=== PATIENT | female | born 1980 | race Caucasian/White ===

== ENCOUNTER 2017-03-13 20:47 | Inpatient (IN) | payer OTHER ==
[~2017-03-13] VITALS: Ht 170.2 cm; Wt 70.9 kg
[2017-03-13 20:50] VITALS: BP 154/107; PULSE 98; RESP 16; O2SAT 99
[2017-03-13] MEDS ORDERED: 0.9% Sodium Chloride 1,000 ML IV ONE (21:16)
--- NOTE | 2017-03-13 21:16 | ED.REPORT ---
HPI-General Illness Date of Service March 13, 2017 ED Provider: Dr. Brigido Mcdonald MD A 36 year old female presents to the ED with opiate withdrawal that began earlier this afternoon. Patient is currently interested in a referral to [facility]. She was previously seen in the ED in 06/2016 with similar symptoms and was referred to a Suboxone clinic but did not follow-up with the treatment. Associated symptoms include nausea, vomiting, diaphoreses and diarrhea. Patient has been using IV heroin for the past year and last used 24 hours ago. Nursing Notes Stated Complaint: OPIATE WITHDRAWL Chief Complaint: Substance Abuse Nursing Notes Reviewed: Yes Allergies: Coded Allergies: No Known Allergies (Unverified , 03/13/17) Scheduled Nicotine 21 mg/24 hr Patch (Nicotine 21 mg/24 hr Patch) 1 Each Patch.dysq 1 PATCH TRANSDERM DAILY Scheduled PRN Ibuprofen (Ibuprofen) 200 Mg Capsule 200-400 MG PO QID PRN PRN For Pain General Time Seen by MD: 21:15 Chief Complaint Other (Substance Abuse) Hx Obtained From: Patient Arrived By: Walk-in Sudden in Onset?: No Onset Occurred: 5 - 8 hours ago Symptom Duration: Since onset Associated with: Reports: Diaphoresis, Nausea, Vomiting Pertinent Negative: Pt denies other symptoms Recent Healthcare: No recent doctor visit, No recent hospitalization Past Medical History Past Medical History Hx of heroin abuse Past Surgical History Abscess I&D Social History IM heroin Other Social History: Poor social support, Local resident Ambulatory Status Independent Review of Systems Full Review of Systems GI: Reports: Diarrhea, Nausea, Vomiting Skin: Reports Diaphoresis Complete sys rev & neg: except as marked. Physical Exam Vital Signs Vital Signs Date Time Temp Pulse Resp B/P Pulse Ox O2 Delivery O2 Flow Rate FiO2 03/13/17 23:51 85 20 154/96 100 Room Air 03/13/17 20:50 36.4 98 16 154/107 99 Room Air Initial VS: Reviewed Neck: Supple, Non-tender, Full range of motion Extremities: Vascular intact, Neuro intact, No swelling, No tenderness Skin: Warm, Dry, No cyanosis Neurologic: Alert, Oriented, Nonfocal General/Constitutional: Awake, Alert, No acute distress Head / Eyes: Atraumatic, Normocephalic, PERRL Respiratory / Chest: Atraumatic, Breath sounds NL, Breath sounds = bilat, No respiratory distress Cardiovascular: Heart rate NL, Regular rhythm, Heart sounds NL, No murmurs Abdomen: Atraumatic, Soft, BS normoactive Interpretation & Diagnostics Lab Results Interpretation Result Diagram: 03/13/17 2210 03/13/17 2210 Test 03/13/17 22:10 03/13/17 23:58 White Blood Count 10.2th/mm3 (3.8-10.1) Red Blood Count 5.58mil/mm3 (3.90-5.20) Hemoglobin 15.3g/dL (12.0-15.6) Hematocrit 46.5% (35.0-46.0) Mean Corpuscular Volume 83.3fL (81-100) Mean Corpuscular Hemoglobin 27.4pg (27.0-35.0) Mean Corpuscular Hemoglobin Concent 32.9% (32.0-37.0) Red Cell Distribution Width 15.6% (12.3-15.4) Platelet Count 389bil/L (150-400) Neutrophils (%) (Auto) 43.7% (40-74) Lymphocytes (%) (Auto) 41.3% (14-46) Monocytes (%) (Auto) 8.1% (4-12) Eosinophils (%) (Auto) 5.1% (0-5) Basophils (%) (Auto) 1.5% (0-3) Band Neutrophils % 0% (1-5) Prothrombin Time 12.1sec (8.1-12.5) Prothromb Time International Ratio 1.13ratio Sodium Level 139mEq/L (134-144) Potassium Level 4.3mEq/L (3.5-5.2) Chloride Level 100mEq/L (97-108) Carbon Dioxide Level 23mmol/L (18-29) Blood Urea Nitrogen 17mg/dL (6-20) Creatinine 0.44mg/dL (0.57-1.00) Estimat Glomerular Filtration Rate 229mL/min (>59) Glucose Level 126mg/dL (60-99) Calcium Level 9.1mg/dL (8.5-10.1) Total Bilirubin 3.2mg/dL (0.0-1.2) Aspartate Amino Transf (AST/SGOT) 1304U/L (0-50) Alanine Aminotransferase (ALT/SGPT) 1691U/L (0-32) Alkaline Phosphatase 216U/L (25-150) Total Protein 7.5g/dL (6.4-8.4) Albumin 3.9g/dL (3.4-5.0) Lipase 13U/L (13-60) Urine Color Dark yellow (YELLOW) Urine Appearance Cloudy (CLEAR,HAZY) Urine pH 5.5 (5.0-8.0) Urine Specific Cooper 1.023 (1.003-1.035) Urine Protein Tracemg/dL (NEG,TRACE) Urine Glucose (UA) Negativemg/dL (NEGATIVE) Urine Ketones Negativemg/dL (NEGATIVE) Urine Occult Blood Large (NEGATIVE) Urine Nitrite Positive (NEGATIVE) Urine Bilirubin Moderate (NEGATIVE) Urine Ictotest Positive (Negative) Urine Urobilinogen 4.0mg/dL (NORMAL) Urine Leukocyte Esterase Trace (NEGATIVE) Urine RBC 11-50/hpf (0-2) Urine WBC 6-10/hpf (0-5) Urine Epithelial Cells Moderate/hpf (NONE-MOD) Urine Crystals None seen (NONE SEEN) Urine Bacteria Many/hpf (NONE-FEW) Urine Hyaline Casts None/lpf (NONE) Urine Granular Casts None seen (NONE SEEN) Urine Waxy Casts None seen (NONE SEEN) Urine Red Blood Cell Casts None seen (NONE SEEN) Urine White Blood Cell Casts None seen (NONE SEEN) Urine Mucus Present (None Seen) Urine Trichomonas None seen (NONE SEEN) Urine Yeast None (NONE SEEN) Urinalysis Comment None Urine Culture Reflexed Indicated US Focused Biliary CONCLUSION: Normal gallbladder, contracted. Mild hepatomegaly. No gallstones or acute abnormalities. Radiologist: Ann Bolden MD. Re-Eval/Medical Decision Time of Eval: 21:31 Patient Status: Condition improved Re-Evaluation/Progress Note: She is informed of her lab results. All of the patient's questions are addressed. She understands and agrees with the treatment plan. Time of Eval: 23:17 Re-Evaluation/Progress Note: Pt rechecked. Pt denies ETOH abuse or hx of HepC. She states that she had bilious vomit last night and abdominal bloating. Discussed need for abdomenal US and possible need for admit. Pt understands and agrees with plan. Consultation #1: Referral / Consult Name: Efe Lyn MD Call Returned at: 23:25 [employer]inter Press Operator: Will see patient Note: Discussed pt condition and plan for acute hepatitis work-up with admit. Dr. Lyn agrees with the plan and will consult on pt tomorrow. Consultation #2: Referral / Consult Name: Sariah Georges DO Consulted With: Hospitalist Call Returned at: 23:48 [employer] Operator: Will see patient, Agrees with eval, Accepts admit Note: Dsicussed pt condition. Accepts admit. Counseled Regarding: Diagnosis, Lab results, Need for follow-up, When/why to return to ED Discharge & Departure Primary Impression: Acute hepatitis Additional Impressions: Opioid withdrawal UTI (urinary tract infection) Urinary tract infection type: acute cystitis Hematuria presence: without hematuria Qualified Code: N30.00 - Acute cystitis without hematuria Disposition: ADMITTED TO HOSPITAL Discharge Condition All VS Reviewed: Yes Condition: Improved Additional Instructions: Thank you for trusting us with your care this evening. I highly recommend that you abstain from heroin until you are able to follow up with [facility] (see referral). Please return to the emergency department for any new or worsening symptoms. Referrals: [facility] (PCP) [facility] Attestation Portions of this note were transcribed by Roya Kitchen and Maisha Carvalho. I, Dr. Mcdonald personally performed the history, physical exam and medical decision- making; I reviewed and confirmed the accuracy of the information in the transcribed note. Signed by: Elaina France, 03/13/17 2200. Signed by: Elaina Vergara, 03/14/17 and Brigido Godinez DO March 13, 2017 21:16 ROYA KITCHEN March 13, 2017 21:24 MAISHA CARVALHO March 13, 2017 23:19
[2017-03-13] MEDS ORDERED: Ondansetron 2 mg/mL 2 mL Inj IVPUSH PRN ×2 (21:20→23:50)
[2017-03-13] MEDS ORDERED: cloNIDine 0.1 mg Tablet PO ONE (21:35)
[2017-03-13] MEDS ORDERED: Promethazine Inj 12.5 MG in 0.9% Sodium Chloride-Pha MIX 100 ML IV ONE (21:35)
[2017-03-13 22:31] LABS: MONOCYTES % (AUTO) 8.1 % (4-12); Mean Corpuscular Hemoglobin 27.4 pg (27.0-35.0); Mean Corpuscular Volume 83.3 fL (81-100); NEUTROPHILS % (AUTO) 43.7 % (40-74); Platelet Count 389 bil/L (150-400)
[2017-03-13 22:32] LABS: BASOPHILS % (AUTO) 1.5 % (0-3); EOSINOPHILS % (AUTO) 5.1 % (0-5)
[2017-03-13 23:33] LABS: INR 1.13 ratio
[2017-03-13] MEDS ORDERED: Alum-Mag Hydrox-Simeth 30 mL Suspension PO PRN (23:50)
[2017-03-13] MEDS ORDERED: Polyethylene Glycol (PEG) 17 Gm Powder PO PRN (23:50)
[2017-03-13 23:51] VITALS: BP 154/96; PULSE 85; RESP 20; O2SAT 100
--- NOTE | 2017-03-13 23:58 | PCM.HPMED ---
Subjective Date of Service March 13, 2017 Primary Provider: Admitting Physician: Primary Care Physician: Maya Attending Physician: Admit Status: From the Emergency Department Chief Complaint: diarrhea, nausea, vomiting History of Present Illness: 36yoF with history of heroin dependence admitted with one week history of acute epigastric pain and opioid withdrawal. Patient is in mild distress during interview and a somewhat difficult historian. Over the past week she states that she has been having increasing non-radiating abdominal pain (now rated 9/10) in the epigastric area. This is in the setting of current opioid withdrawal however this pain is different in character than previous withdrawal. She also endorses nausea, vomiting, chills which she feels are a/w withdrawal and denies hematemesis, changes in urination , or recent changes in BM. Last use of heroin was 24 hours ago. Ms. Baker wishes to stop using heroin and is interested in using suboxone at this time. Review of Systems: Complete review of systems obtained. Positive as per HPI otherwise negative. Allergies Coded Allergies: No Known Allergies (Unverified , 03/13/17) Home Medications None PMH IVDU, heroin dependence Surgical History I&D abscess Appendectomy Back surgery Family History No history of opioid dependence Social History Occupation: unemployed Hx Substance Use: Yes (Heroin) Hx Tobacco Use: Yes Smoking Status: Current Every Day Smoker Living Arrangement: with Family (lives with mother) Exam Vital Signs Vital Sign - Last Date Time Temp Pulse Resp B/P Pulse Ox O2 Delivery O2 Flow Rate FiO2 03/13/17 23:51 85 20 154/96 100 Room Air 03/13/17 20:50 36.4 Exam General: Alert and oriented x3, mild distress Eyes: PERRLA, Scleral icteric Mouth: Mouth Normal, Mucous Membranes dry/[place] Neck: Supple, no Thyromegaly, trachea central. Pulmonary: clear to auscultation bilaterally, no rhonchi, wheezes or rales, good inspiratory effort Cardiovascular: Normal S1, Normal S2, No Murmurs/Rubs/Gallops, Regular Rate/ Rhythm, (No JVD, no peripheral edema) Pulses: Radial (present and equal), Dorsalis Pedi (present and equal) GI: Soft, tender in the mid epigastric and RUQ, mildly distended, Normoactive bowel tones. Musculoskeletal: no joint edema or erythema Extremities: No edema, no cyanosis, no clubbing. Skin: No rashes. Warm and dry, no erythematous areas, jaundice Neurological: CN grossly intact Lymphatic: Lymph nodes Cervical and Axillary not palpable. Psych: normal affect Lab and Diagnostics Result Diagram: 03/13/17220903/13/172209 Additional Diagnostics: ABD US as per ED CONCLUSION: Normal gallbladder, contracted. Mild hepatomegaly. No gallstones or acute abnormalities. Radiologist: Ann Bolden MD. Assessment & Plan 36yoF with history of heroin dependence admitted with one week history of acute epigastric pain and opioid withdrawal. Abdominal pain, acute, POA -likely multifactorial opiate withdrawal, acute hepatitis, -initial US read complete, official pending -blood work reviewed and concerning for biliary obstruction -consult GI in am Elevated transaminases, acute, POA -history of IVDU with patient reported hepatitis screen negative. -repeat hepatitis panel pending -US official read pending, blood work concerning for biliary obstruction -acetaminophen level mildly elevated on presentation, NAC protocol started as per poison control recs, patient not suicidal and recently took acetaminophen for abdominal pain Urinary tract infection, acute, POA -patient without dysuria, possible frequency -given piperacillin-tazobactam in ED -will continue levofloxacin daily Elevated glucose, acute, POA -no history of diabetes -hgbA1c pending Acute opioid withdrawal, acute POA -will start suboxone -lorazepam, clonidine PRN Opioid dependence, chronic, POA -patient wishes to stop using at this time -2mg subutex ordered, AM to consult with ED providers of subutex for further management inpatient and following discharge -SW consult Tobacco dependence, chronic, POA -discussed the importance of tobacco cessation -patient would like to stop smoking -nicotine patch ordered Pain Evaluation: Adequate Pain Control GI Prophylaxis: Not indicated VTE Prophylaxis: Sub-Q Heparin (Unfractionated) Resuscitation Status: CPR: Attempt Resuscitation Sariha Georges DO March 13, 2017 23:58
[2017-03-14] MEDS ORDERED: NICO1PAT16 TRANSDERM
[2017-03-14] MEDS ORDERED: IBUP200C PO
[2017-03-14 00:04] LABS: APPEARANCE,URINE CLOUDY (CLEAR,HAZY); COLOR,URINE DARK YELLOW (YELLOW); PH,URINE 5.5 (5.0-8.0)
[2017-03-14 00:05] LABS: ICTOTEST,URINE POSITIVE (Negative); OCCULT BLOOD,URINE LARGE (NEGATIVE)
[2017-03-14] MEDS ORDERED: Piperacillin-Tazo 3.375 Gm Inj 3.375 GM in Dextrose 5% Minibag Plus 50 ML IV ONE (00:30)
[2017-03-14] MEDS: 0.9% Sodium Chloride 1,000 ML IV SCH ×2 (00:30→13:10)
[2017-03-14 01:02] VITALS: BP 154/96; PULSE 85; RESP 20; O2SAT 100
[2017-03-14] MEDS ORDERED: ACETYLCYSTEINE IV SCH ×4 (01:45→08:40)
[2017-03-14] MEDS ORDERED: DEXTROSE 5% IV SCH ×4 (01:45→08:40)
[2017-03-14 02:00] VITALS: BP 135/86; PULSE 77; RESP 18; O2SAT 97
[2017-03-14] MEDS ORDERED: Buprenorphine 2 mg SL Tablet SL ONE (04:35)
[2017-03-14] MEDS ORDERED: cloNIDine 0.1 mg Tablet PO PRN (04:35)
[2017-03-14 05:44] VITALS: BP 148/96; PULSE 85; RESP 18; O2SAT 96
[2017-03-14 07:41] LABS: BASOPHILS % (AUTO) 0.8 % (0-3); EOSINOPHILS % (AUTO) 5.9 % (0-5); MONOCYTES % (AUTO) 11.1 % (4-12); Mean Corpuscular Hemoglobin 27.9 pg (27.0-35.0); Mean Corpuscular Volume 82.9 fL (81-100); Platelet Count 328 bil/L (150-400)
[2017-03-14 07:51] LABS: INR 1.29 ratio
[2017-03-14 08:28] VITALS: BP 157/91; PULSE 74; RESP 18; O2SAT 95
[2017-03-14] MEDS ORDERED: levoFLOXacin Inj 750 MG in IV Premix 1 EACH IV SCH (08:30)
--- NOTE | 2017-03-14 08:54 | DRSVH ---
PROCEDURE: US ABDOMEN, LIMITED ([id number]) INDICATIONS: upper abdominal pain, acute hepatitis TECHNIQUE: Real-time focused scanning was performed of the abdomen, with image documentation. COMPARISON: None. FINDINGS: Limited exam demonstrating normal appearance of the liver. Gallbladder is contracted and t he patient is not n.p.o. No biliary dilatation with the common bile that measuring 4.6 mm. Pancreas is grossly normal. IMPRESSION: 1. Limited evaluation of the gallbladder which is contracted. If indicated repeat ultrasound could b e performed after the patient has been fasting between 8 and 10 hours. No definite acute abnormality seen. Note: These findings are concordant with the preliminary interpretation. Dictated by: Abdiel GUSMAN Interpreted: Rodney Wood MD on 03/14/2017 at 8:51 Transcribed by: JUANITA on 03/14/2017 at 8:53 Approved by: Vikram Wood M.D. on 03/14/2017 at 10:50
--- NOTE | 2017-03-14 10:30 | PCM.CHPMED ---
Subjective Date of Service: March 14, 2017 Primary Physician: Admitting Physician: Sariah Georges DO Primary Care Physician: Maya Attending Physician: Sariah Georges DO Chief Complaint: Chief Complaint: Diarrhea, nausea, vomiting History of Present Illness: 36-year-old female who put medical history except for heroin abuse with recent use 24-48 hours ago who presented with acute epigastric pain and symptoms of opiate withdrawal. Over the past week the patient has been having increasing epigastric pain with some radiation into the right upper quadrant and flank with current pain about 610. It is worse after eating and she is very nauseous. She also reports fevers (although none recorded here), chills, urinating frequently, and decreased appetite. Patient denies hematochezia, hematemesis, or dizziness/lightheadedness, as well as chest pain or shortness of breath. She states that this is different than her previous withdrawal from heroin and she wishes to stop using heroin. She denies recent history of hepatitis states that she was checked 6 months ago. She has been using heroin for 1 year as introduced by her mother who, per patient, earlier today asked for heroin from her while she is in the hospital. Patient denies using alcohol but does smoke cigarettes. Presentation patient had extreme elevation of her transaminases greater than 1300 that have somewhat begun to resolve, currently down around 1100. Patient also had elevated alkaline phosphatase ultrasound was obtained last night and this morning which do not show any duct dilation or stones in the bladder. White count was initially elevated but is resolved, and there is no indication of kidney injury. Bilirubin is increasing, having gone from 3.2 last night to 3.5 this morning. Alkaline phosphatase is also resolving. Acetaminophen level was obtained and was normal. INR was 1.13. Review of Systems: See history of present illness PMH Past Medical History Heroin abuse Hx Any Other Health Problems?: NoHx Diabetes: No Surgical History I&D abscess Appendectomy Back surgery Home Medications None Allergies: Coded Allergies: No Known Allergies (Unverified , 03/13/17) Family History Family History Grandmother of pancreatic cancer diagnosed at age 50 Social History Occupation: unemployed Hx Alcohol Use: YesHx Substance Use: Yes (HEROIN)Hx Tobacco Use: Yes Smoking Status: Current Every Day Smoker Living Arrangement: with Family (lives with mother) Exam Vital Signs Vital Sign - Last Date Time Temp Pulse Resp B/P Pulse Ox O2 Delivery O2 Flow Rate FiO2 03/14/17 08:28 74 18 157/91 95 Room Air 03/14/17 05:44 36.5 Intake and Output 03/13/17 03/13/17 03/14/17 Cumulative From/Thru 15:00 23:00 07:00 03/13/17 20:50 - 03/14/17 06:00 Intake Total 1000 ml 593 ml 1593 ml Output Total 180 ml 180 ml Balance 1000 ml 413 ml 1413 ml Intake IV Total 1000 ml 593 ml 1593 ml Output Urine Total 180 ml 180 ml Additional Information: General: Patient awake and alert in no acute distress HEENT: Sclerae are mild moderately icteric; mucous membranes moist Cardio: Regular rate and rhythm Respiratory: CTA bilaterally, no areas of crackle or consolidation Abdominal: Patient is diffusely and mildly tender except in the epigastrium and right upper quadrant pain is more moderate with positive Sin sign Skin: No telangiectasias Extremities: No edema, noticeable injection site abscesses Neurologic: No asterixis Psych: Calm Lab and Diagnostics Result Diagram: 03/14/1771503/14/17715 Assessment & Plan Assessment Problem list: Severe acute hepatitis of unknown etiology UTI Opioid withdrawal Assessment/plan 36-year-old female with recent heroin abuse with negative hepatitis screening 6 months ago who presented with epigastric and right upper quadrant abdominal pain has been progressively worse over the last week with new jaundice. Patient also had extremely elevated transaminases representing severe hepatocellular damage. Because of this damages of this time is unknown. Very likely the patient's contracted hepatitis from IV drug use although it is somewhat red to see hepatitis C increased transaminases to this extent, although hepatitis a and B could. Consideration was given to biliary obstruction due to an elevated alkaline phosphatase, however, 2 ultrasounds have not shown any duct dilation and gallbladder does not meet criteria for acute cholecystitis. Its of note that those official interpretations are pending. Acetaminophen toxicity is less likely as she had a normal acetaminophen level. There are no episodes of severe hypotension for any episodes that she describes as an outpatient that would lead us to think this could be shock liver. Patient's transaminases are decreasing along with alkaline phosphatase today. Have the bilirubin and INR are increasing with a decrease in albumin. Hepatitis panel was already ordered and we await those results. Also recommend following a total and direct bilirubin, as well as PT/INR, and course of transaminases. Showed the serology for hepatitis come back negative consider checking a anti-smooth muscle antibodies and antimitochondrial antibodies to assess for autoimmune hepatitis, and a ceruloplasmin for Garth's disease. In the meantime recommended patient stay well-hydrated, avoid any hepatotoxic medications, especially acetaminophen containing products. Thank you for allowing us to participate in the care of this patient Problems: Pain Evaluation: Adequate Pain Control GI Prophylaxis: Not indicated VTE Prophylaxis: Sub-Q Heparin (Unfractionated) VTE Mechanical Devices: Intermittant Pneumatic CD Resuscitation Status: CPR: Attempt Resuscitation Attending Statement Patient seen and examined. Agree with assessment and plan as described by Dr Bryson. Patient was in the process of leaving AMA when I was at the bedside. Both she and her mom feel they need to self treat with heroin to better manage their withdrawls. Explained the danger of this advancing fulminant liver failure. This did not dissuade patient from leaving. Encouraged her to at very least obtain primary provider to follow up on her liver tests. Explained that i expected to her to become more jaundiced than she is at present. Sage Bryson DO March 14, 2017 10:30 Efe Lyn MD March 14, 2017 18:55
--- NOTE | 2017-03-14 10:44 | DRSVH ---
PROCEDURE: US ABDOMEN INDICATIONS: transaminitis TECHNIQUE: Real-time scanning was performed of the abdominal and retroperitoneal organs, with image documentatio n. COMPARISON: None. FINDINGS: Liver length: 18.05 cm Gallbladder Wall Thickness: 1.70 mm CHD: 2.30 mm CBD: 6.10 mm Spleen length: 12.23 cm Right kidney length: 10.80 cm Left kidney length: 11.99 cm Aorta(Proximal): 2.13 cm Aorta(Mid): 1.94 cm Aorta(Distal): 1.60 cm Liver: Liver is normal in size and homogeneous in echotexture. Gallbladder: Normal gallbladder. Biliary ducts: Intrahepatic bile ducts are non-dilated. Extrahepatic bile duct caliber is normal. Normal is 6-7 mm or less in diameter, or 10 mm or less post-cholecystectomy. Pancreas: Visualized portions of the pancreas are sonographically normal. Spleen: Spleen is normal in size and homogeneous in echotexture. Kidneys: Kidneys are normal in size and echotexture. No hydronephrosis or nephrolithiasis. No nova d masses. Aorta: Visualized aorta is normal in caliber at less than 3 cm. Iliacs: Proximal common iliac arteries are normal in caliber at less than 2.5 cm. IVC: Intrahepatic inferior vena cava is patent. Miscellaneous: No free abdominal fluid. IMPRESSION: Normal exam. Dictated by: Abdiel GUSMAN Interpreted: Rodney Wood MD on 03/14/2017 at 10:43 Transcribed by: JUANITA on 03/14/2017 at 10:44 Approved by: Vikram Wood M.D. on 03/14/2017 at 10:51
[2017-03-14 10:55] VITALS: PULSE 74
[2017-03-14 12:10] VITALS: BP 142/89; PULSE 75; RESP 16; O2SAT 98
--- NOTE | 2017-03-14 19:26 | PCM.DC.MED ---
Discharge Summary Date of Service March 14, 2017 Dates of Hospitalization Date of Hospital Admission March 14, 2017 at 01:09 Date of Discharge: March 14, 2017 Providers: Admitting Physician: Sariah Georges DO Primary Care Physician: Maya Attending Physician: Sariah Georges DO Diagnosis at Time of Discharge Diagnosis at Time of Discharge Acute hepatitis and abdominal pain Consultations Not clear whether gastroenterology consult was ever actually completed before patient left AMA Procedures XRay, CTs & MRIs Abdominal ultrasound impression was normal 03/13 Other Diagnostics ABD US as per ED CONCLUSION: Normal gallbladder, contracted. Mild hepatomegaly. No gallstones or acute abnormalities. Radiologist: Ann Bolden MD. Brief History 36-year-old female who put medical history except for heroin abuse with recent use 24-48 hours ago who presented with acute epigastric pain and symptoms of opiate withdrawal. Over the past week the patient has been having increasing epigastric pain with some radiation into the right upper quadrant and flank with current pain about 610. It is worse after eating and she is very nauseous. She also reports fevers (although none recorded here), chills, urinating frequently, and decreased appetite. Hospital Course 36yoF admitted 03/14 with history of heroin dependence admitted with one week history of acute epigastric pain and opioid withdrawal. 03/14 patient was already exhibiting signs of withdrawal by 10 in the morning. Tremulous sweaty, nauseous. By early afternoon her mother was at the bedside patient had been requesting to go out first cigarettes, went to the shower and came out in the room and the patient smells like smoke. Shortly thereafter she and her mother were in the room with the door closed staff was suspicious about their activity and came in, I recommended they provided behavioral agreement. Shortly thereafter I was informed the patient was leaving AGAINST MEDICAL ADVICE. Abdominal pain, acute, POA -likely multifactorial opiate withdrawal, acute hepatitis, -blood work reviewed and concerning for biliary obstruction -consult GI in am not clear whether it was completed before patient left AMA Elevated transaminases, acute, POA -history of IVDU with patient reported hepatitis screen negative. One ordered in hospital still pending 03/14 at time of discharge -ABD US read as normal -acetaminophen level mildly elevated on presentation, NAC protocol started as per poison control recs, patient not suicidal and recently took acetaminophen for abdominal pain Urinary tract infection, acute, POA UA was clear she was given no further antibiotics. -patient without dysuria, possible frequency -given piperacillin-tazobactam in ED -will continue levofloxacin daily Elevated glucose, acute, POA -no history of diabetes -hgbA1c pending 03/14 at time of AMA departure Acute opioid withdrawal, acute POA -suboxone was started but this was insufficient for this patient. -lorazepam, clonidine PRN Opioid dependence, chronic, POA -patient wishes to stop using at this time -2mg subutex ordered, AM to consult with ED providers of subutex for further management inpatient and following discharge -SW consult Tobacco dependence, chronic, POA -discussed the importance of tobacco cessation -patient would like to stop smoking -nicotine patch ordered Exam Vital Signs (Last) Date Time Temp Pulse Resp B/P Pulse Ox O2 Delivery O2 Flow Rate FiO2 03/14/17 12:10 37.0 75 16 142/89 98 Room Air Exam Gen.- A+ O 3 mild distress diaphoretic, agitated, heavyset white female Eyes- open conjunctiva clear, pupils equal nonicteric ENT- ears normal, nose normal hearing intact Neck- supple/trach midline CVS- RRR Lungs- normal rate no accessory muscle usage GI- flat Musc- moving 4 no obvious deformity Neuro- cranial nerves II through XII intact to gross examination, nonfocal Skin- warm, no rashes/lesions/wounds noted Psych-1-2 word answers for me Test 03/13/17 22:10 03/13/17 22:45 03/13/17 23:58 03/14/17 01:01 Band Neutrophils % 0% (1-5) Lipase 13U/L (13-60) Urine Color Dark yellow (YELLOW) Urine Appearance Cloudy (CLEAR,HAZY) Urine pH 5.5 (5.0-8.0) Urine Specific [place] 1.023 (1.003-1.035) Urine Protein Tracemg/dL (NEG,TRACE) Urine Glucose (UA) Negativemg/dL (NEGATIVE) Urine Ketones Negativemg/dL (NEGATIVE) Urine Occult Blood Large (NEGATIVE) Urine Nitrite Positive (NEGATIVE) Urine Bilirubin Moderate (NEGATIVE) Urine Ictotest Positive (Negative) Urine Urobilinogen 4.0mg/dL (NORMAL) Urine Leukocyte Esterase Trace (NEGATIVE) Urine RBC 11-50/hpf (0-2) Urine WBC 6-10/hpf (0-5) Urine Epithelial Cells Moderate/hpf (NONE-MOD) Urine Crystals None seen (NONE SEEN) Urine Bacteria Many/hpf (NONE-FEW) Urine Hyaline Casts None/lpf (NONE) Urine Granular Casts None seen (NONE SEEN) Urine Waxy Casts None seen (NONE SEEN) Urine Red Blood Cell Casts None seen (NONE SEEN) Urine White Blood Cell Casts None seen (NONE SEEN) Urine Mucus Present (None Seen) Urine Trichomonas None seen (NONE SEEN) Urine Yeast None (NONE SEEN) Urinalysis Comment None Urine Culture Reflexed Indicated Hold Loja Top Tube Received (Received) Hepatitis C Comment . Test 03/14/17 07:16 White Blood Count 9.3th/mm3 (3.8-10.1) Red Blood Count 5.09mil/mm3 (3.90-5.20) Hemoglobin 14.2g/dL (12.0-15.6) Hematocrit 42.2% (35.0-46.0) Mean Corpuscular Volume 82.9fL (81-100) Mean Corpuscular Hemoglobin 27.9pg (27.0-35.0) Mean Corpuscular Hemoglobin Concent 33.6% (32.0-37.0) Red Cell Distribution Width 15.7% (12.3-15.4) Platelet Count 328bil/L (150-400) Neutrophils (%) (Auto) 48.0% (40-74) Lymphocytes (%) (Auto) 34.0% (14-46) Monocytes (%) (Auto) 11.1% (4-12) Eosinophils (%) (Auto) 5.9% (0-5) Basophils (%) (Auto) 0.8% (0-3) Prothrombin Time 13.9sec (8.1-12.5) Prothromb Time International Ratio 1.29ratio Sodium Level 141mEq/L (134-144) Potassium Level 4.3mEq/L (3.5-5.2) Chloride Level 105mEq/L (97-108) Carbon Dioxide Level 22mmol/L (18-29) Blood Urea Nitrogen 9mg/dL (6-20) Creatinine 0.43mg/dL (0.57-1.00) Estimat Glomerular Filtration Rate 235mL/min (>59) Glucose Level 131mg/dL (60-99) Calcium Level 8.7mg/dL (8.5-10.1) Total Bilirubin 3.5mg/dL (0.0-1.2) Aspartate Amino Transf (AST/SGOT) 1179U/L (0-50) Alanine Aminotransferase (ALT/SGPT) 1589U/L (0-32) Alkaline Phosphatase 188U/L (25-150) Total Protein 6.1g/dL (6.4-8.4) Albumin 3.3g/dL (3.4-5.0) Acetaminophen Level < 15.0ug/mL Rx (10-25) Discharge Medications Discharge Medications Nicotine 21 mg/24 hr Patch (Nicotine 21 mg/24 hr Patch) 1 Each Patch.dysq 1 PATCH TRANSDERM DAILY (Reported) As needed Ibuprofen (Ibuprofen) 200 Mg Capsule 200-400 MG PO QID PRN PRN For Pain ( Reported) Followup Plan Disposition: Patient left AGAINST MEDICAL ADVICE Time spent More than 30 minutes Cody Francisco MD March 14, 2017 19:26
[2017-03-21 09:39] LABS: Hepatitis A Antibody IgM NEGATIVE
[2017-03-21 14:11] LABS: Hepatitis B Core Antibody IgM Negative (Negative)
== END 2017-03-14 17:47 | disposition left against medical advice (07) | DRG 894 ==
LOC: SED 20:47 → MOC 03-14 01:09
PROVIDERS: ADMIT Internal Medicine; ATTEND Internal Medicine
DX: F11.23 Opioid dependence with withdrawal (principal); N39.0 Urinary tract infection, site not specified; B17.9 Acute viral hepatitis, unspecified; F17.200 Nicotine dependence, unspecified, uncomplicated